=== PATIENT | female | born 1965 | race Caucasian/White ===

== ENCOUNTER 2020-07-02 08:48 | Outpatient (REF) | payer OTHER, SELFPAY ==
[2020-07-02 13:37] LABS: Urine Cytology See Pathology rpt
== END 2020-07-02 08:49 | disposition home or self-care (01) ==
LOC: HO.LNP 08:48
PROVIDERS: Visit Provider Urology
DX: C67.9 Malignant neoplasm of bladder, unspecified (principal)
CPT/HCPCS: 52000; 81002; 88112

== ENCOUNTER → 2020-12-29 08:25 | Outpatient (BNVA) | payer OTHER, SELFPAY | PROVIDERS: Visit Provider Urology | DX: C67.9 Malignant neoplasm of bladder, unspecified (principal) ==

== ENCOUNTER 2021-07-23 13:48 | Outpatient (REF) | payer OTHER, SELFPAY ==
[2021-07-23 16:19] LABS: Urine Cytology See Pathology rpt
== END 2021-07-23 13:49 | disposition home or self-care (01) ==
LOC: HO.LAB 13:48
PROVIDERS: PCP Nurse Practitioner Family; Visit Provider Urology
DX: C67.9 Malignant neoplasm of bladder, unspecified (principal)
CPT/HCPCS: 52000; 88112

== ENCOUNTER 2021-09-06 06:17 | Outpatient (REF) | payer OTHER, SELFPAY ==
[2021-09-06 11:31] LABS: MANUAL DIFF FLAG NO
[2021-09-06 11:39] LABS: Basophils Absolute Auto 0.1 X10*3/uL (0.0-0.2); Basophils Percent Auto 0.8 % (0-2); Eosinophils Absolute Auto 0.4 X10*3/uL (0.0-0.4); Eosinophils Percent Auto 4.3 % (0-4); Hematocrit 42.6 % (37.0-47.0); Imm Gran Abs Auto 0.02 X10*3/uL (0.00-0.03); Imm Gran Pct Auto 0.2 % (0.0-0.4); Lymphocytes Absolute Auto 3.4 X10*3/uL (1.2-4.9); Lymphocytes Percent Auto 40.7 % (20-40); Mean Corpuscular HGB Conc 32.9 g/dl (31.0-35.0); Mean Corpuscular Hemoglobin 29.7 pg (27.0-33.0); Mean Corpuscular Volume 90.4 fL (80.0-98.0); Mean Platelet Volume 10.2 fL (9.4-12.3); Monocytes Absolute Auto 0.8 X10*3/uL (0.1-1.2); Monocytes Percent Auto 9.5 % (2-11); Neutrophils Absolute Auto 3.7 x10*3/uL (2.0-8.3); Neutrophils Percent Auto 44.5 % (45-73); Platelet Count 363 X10*3/uL (160-400); Red Blood Count 4.71 X10*6/uL (4.20-5.50); Red Cell Distribution Width 13.4 % (11.0-16.0); White Blood Count 8.4 X10*3/uL (4.8-10.8)
[2021-09-06 12:12] LABS: Alanine Aminotransferase 30 U/L (0-31); Albumin Level 4.3 g/dL (3.5-5.0); Alkaline Phosphatase 85 U/L (39-117); Anion Gap 11 (12-20); Aspartate Amino Transferase 21 U/L (5-31); Bilirubin Total 0.2 mg/dL (0.0-1.0); Blood Urea Nitrogen 22 mg/dL (9-16); Calcium 9.7 mg/dL (8.4-10.2); Carbon Dioxide 28 mmol/L (22-29); Chloride 106 mmol/L (96-108); Cholesterol 308 mg/dL; Estimated Glomerular Filt Rate > 60; Glucose Fasting 121 mg/dL (60-99); HDL Cholesterol 51 mg/dL; LDL Cholesterol Calculated 219 mg/dl; Potassium 4.5 mmol/L (3.3-5.1); Sodium 140 mmol/L (135-145); TSH reflex Free T4 2.46 uIU/mL (0.32-4.0); Total Protein 7.1 g/dL (6.5-8.0); Triglycerides 190 mg/dL
[2021-09-06 12:20] LABS: Appearance Urine CLEAR; Color Urine YELLOW; Glucose Urine UA NEG (NEG); Leukocyte Esterase Urine NEG (NEG); Nitrite Urine NEG (NEG); Urine Blood NEG (NEG); Urine Ketones NEG (NEG); Urine Protein NEG (NEG-TRACE)
== END 2021-09-06 06:18 | disposition home or self-care (01) ==
LOC: HO.HMGCLDS 06:17
PROVIDERS: Visit Provider Nurse Practitioner Family
DX: I10 Essential (primary) hypertension (principal)
CPT/HCPCS: 36415; 80053; 80061; 81003; 84443; 85025

== ENCOUNTER → 2021-10-07 09:22 | Outpatient (BNVA) | payer OTHER, SELFPAY | PROVIDERS: PCP Nurse Practitioner Family; Referring Provider Nurse Practitioner Family; Visit Provider Physician Assistant | DX: D12.6 Benign neoplasm of colon, unspecified (principal); F17.200 Nicotine dependence, unspecified, uncomplicated; Z12.11 Encounter for screening for malignant neoplasm of colon; Z85.51 Personal history of malignant neoplasm of bladder; Z79.899 Other long term (current) drug therapy ==

== ENCOUNTER 2021-11-17 06:10 | Outpatient (REF) | payer OTHER, SELFPAY ==
[2021-11-17 12:00] LABS: Cholesterol 349 mg/dL; HDL Cholesterol 45 mg/dL; LDL Cholesterol Calculated 261 mg/dl; Triglycerides 216 mg/dL
== END 2021-11-17 06:11 | disposition home or self-care (01) ==
LOC: HO.HMGCLDS 06:10
PROVIDERS: Visit Provider Nurse Practitioner Family
DX: E78.5 Hyperlipidemia, unspecified (principal)
CPT/HCPCS: 36415; 80061

== ENCOUNTER → 2022-01-13 09:53 | Outpatient (BNVA) | payer OTHER, SELFPAY | PROVIDERS: PCP Nurse Practitioner Family; Visit Provider Urology | DX: C67.9 Malignant neoplasm of bladder, unspecified (principal) | CPT/HCPCS: 52000 ==

== ENCOUNTER 2022-02-01 14:06 | Outpatient (REF) | payer OTHER, SELFPAY ==
--- NOTE | ~2022-02-01 | MM_ITS ---
EXAMINATION: BONE DENSITOMETRY CLINICAL INDICATION: Asymptomatic menopausal state. COMPARISON: None (current study represents initial baseline exam). TECHNIQUE: Using a [employer] DXA System (software version: 13.1) manufactured by [employer], dual-energy x-ray absorptiometry was performed of the lumbar spine and left hip. The images are of good technical quality. Summary results are attached. FINDINGS: AP SPINE L1-L4: BMD 1.210 g/cm2, Z-score 1.0, T-score 0.2, normal. LEFT FEMUR, NECK: BMD 1.036 g/cm2, Z-score 1.0, T-score 0.0, normal. LEFT FEMUR, TOTAL: BMD 1.052 g/cm2, Z-score 1.0, T-score 0.3, normal. IDENTIFIED RISK FACTORS: Early menopause, secondary osteoporosis, hysterectomy. HISTORY OF FRACTURE: None listed. MEDICATIONS: None listed. MM/XR DEXA axial skeleton IMPRESSION: 1. DIAGNOSIS: Normal bone density based on the lowest T-score value of 0.0 in the femoral neck applying World Health Organization criteria. 2. 10-YEAR FRACTURE RISK PREDICTION, FRAX: According to the guidelines, FRAX calculation should only be performed on patients in the osteopenia bone density category. Therefore, FRAX was not performed on this patient. 3. Treatment Recommendations: NOF guidelines recommend consideration for treatment in postmenopausal women and men age 50 and older presenting with the following: -A hip or vertebral (clinical or morphometric) fracture. -T-score less than or equal to -2.5 at the femoral neck or spine after appropriate evaluation to exclude secondary causes. -Low bone mass at the hip or spine and a 10-year fracture probability by FRAX of greater than or equal to 3% for hip fracture or greater than or equal to 20% for major osteoporotic fracture based on the [place] adapted WHO algorithm. 4. Other Recommendations: All treatment decisions require clinical judgment and consideration of individual patient factors, including patient preferences, comorbidities, previous drug use, risk factors not captured in the FRAX model (e.g. frailty, falls, vitamin D deficiency, increased bone turnover, interval significant decline in bone density) and possible under or overestimation of fracture risk by FRAX. FUTURE SCAN RECOMMENDATION: People with diagnosed cases of osteoporosis or at high risk for fracture should have regular bone mineral density tests. For patients eligible for Medicare, routine testing is allowed once every 2 years. The testing frequency can be increased to one year for patients who have rapidly progressing disease, those who are receiving or discontinuing medical therapy to restore bone mass, or have additional risk factors.
--- NOTE | ~2022-02-01 | MM_ITS ---
EXAMINATION: MM SCREENING DIGITAL BREAST TOMOSYNTHESIS, BILATERAL CLINICAL INFORMATION: Screening. Asymptomatic. The lifetime risk of breast cancer based on the Tyrer-Cuzick Model is 7%. COMPARISON: Mammography: 03/26/2019, 01/12/2018, 08/11/2015 TECHNIQUE: Digital breast tomosynthesis is performed in both the craniocaudal and mediolateral oblique views along with computer-aided detection (CAD). Synthesized 2D images are generated from the tomosynthesis. FINDINGS: The breasts are heterogeneously dense, which may obscure small masses (ACR BI-RADS breast composition Category c). Parenchymal pattern is similar to prior studies. There is no developing density or architectural abnormality. There is some interval tightly grouped coarse calcifications mid upper outer right breast. No abnormal calcifications. The axilla and skin contours are unremarkable. No significant changes. MM/MM tomosynthesis screening BI IMPRESSION: No mammographic evidence of malignancy. ASSESSMENT: BI-RADS 2: Benign RECOMMENDATION: Routine annual mammography screening. This patient's information was entered into a reminder system with a target due date for their next mammogram.
== END 2022-02-01 14:07 | disposition home or self-care (01) ==
LOC: HO.MAMMO 14:06
PROVIDERS: Visit Provider Nurse Practitioner Family
DX: Z12.31 Encounter for screening mammogram for malignant neoplasm of breast (principal); Z13.820 Encounter for screening for osteoporosis; Z78.0 Asymptomatic menopausal state
CPT/HCPCS: 77063; 77067; 77080

== ENCOUNTER 2022-07-15 08:52 | Outpatient (REF) | payer OTHER, SELFPAY ==
[2022-07-15 16:57] LABS: Urine Cytology See Pathology rpt
== END 2022-07-15 08:53 | disposition home or self-care (01) ==
LOC: HO.LAB 08:52
PROVIDERS: PCP Nurse Practitioner Family; Visit Provider Urology
DX: C67.9 Malignant neoplasm of bladder, unspecified (principal)
CPT/HCPCS: 52000; 88112

== ENCOUNTER 2023-04-11 13:51 | Outpatient (AMB) | payer OTHER, SELFPAY ==
--- NOTE | 2023-04-11 13:54 | MHC.OFFVIS ---
Intake Intake Visit Reasons: Cysto(Bladder Ca) Intake Note: Patient presents today for a CYSTOSCOPY Procedure: Meds: None Allergies to Antibiotic: No Known Allergies Blood Thinner: None Urinalysis test clear for Cysto?- YES Disposable Uro-G Cystoscope Cannula: Lot: [id number] Exp: 11/13/2024 Landscape Photographer Required: No Accompanied by: Self / Same As Patient Allergies No Known Allergies Allergy (Verified 04/11/23 13:56) HPI HPI Comments History of Present Illness Details Federica is very pleasant female. She is a patient Dr. Morales. She is seen for following urologic conditions - bladder cancer Cysto question of small changes around prior resection areas Has been visible on previous cysto Continue surveillance Bladder Cancer: low-grade, recurrent, intermediate risk initial diagnosis 2017, last TURBT 02/18 Bladder cancer was initially diagnosed during evaluation for gross hematuria 06/18. Bladder intervention(s) performed 07/20 , TURBT, with Mitomycin C, Ta noninvasive papillary carcinoma, Low Grade 02/18 TURBT , Ta noninvasive papillary carcinoma, Low Grade. Recurrence Risk per EORTC - intermediate risk. Bladder cancer risk factors - smoking positive no workplace exposure Prior Cystoscopy 07/20 , Positive - small lesion 10/18 Negative 01/17 slight red posterior, metaplasia over left UO, 07/21 Small lesion on UO, 01/18 Small UO leson - will fulgerate in OR due to location 07/22 NAD, 12/20 posterior wall small area of redness, 06/21 small red spot, 12/21 stable - 12/21 cystoscopy negative, 07/24 NAD, 01/21 NAD Prior Cytology 07/20 , Negative for malignancy 10/18 , Negative for malignancy 04/19 , Negative for malignancy 07/21 , Negative for malignancy, 07/23 NAD Prior Imaging 06/18 , CT scan with contrast, No evidence for metastases 02/17 , Ultrasound mild left hydro stable. Previous intravesical therapy none. Planned treatment surveillance protocol q6 m for 5 years PFSH Medical History Bladder cancer HTN (hypertension) Gross hematuria Malignant neoplasm of anterior wall of urinary bladder Tubular adenoma of colon Overweight Surgical History Hx of colonoscopy History of surgery Family History Mother Diabetes HTN (hypertension) High cholesterol Father Diabetes HTN (hypertension) High cholesterol Sister HTN (hypertension) High cholesterol Sister HTN (hypertension) High cholesterol Sister HTN (hypertension) High cholesterol Brother HTN (hypertension) High cholesterol Brother HTN (hypertension) High cholesterol Brother HTN (hypertension) High cholesterol Social History Household Members Other:: , 17 y/o daughter Housing: House Alcohol intake: never Patient Tobacco Use Status: Former Tobacco user Quit Date: quit 20 years ago 1997 e-Cigarette/Vaping Use: Never Used Second Hand Smoke Exposure: No Substance Use Type: Marijuana Current occupational status: employed Current occupation: [employer] Current occupational exposures/hazards: No Cognitive needs: No Hearing needs: No Vision needs: No Review of Systems Const Denies chills and Denies fever(s) Card Reports no additional complaints and Denies syncope Resp Denies cough GI Denies abdominal pain and Denies heartburn Reports as per HPI and Denies change in libido Neuro Denies syncope Psych Denies change in libido Endo Denies change in libido Physical Exam Const General: cooperative, healthy appearing, comfortable and no acute distress Orientation/consciousness: patient oriented x3 HEENT Face and sinus: Yes normal facial exam Mouth: moist mucous membranes Neck Neck: Yes normal visual inspection, Yes full ROM and Yes trachea midline Chest Chest palpation & inspection: normal inspection of the chest Resp Effort & Inspection: normal respiratory effort, able to speak in complete sentences and no respiratory distress GI Inspection: Yes normal to inspection Back/Spine/Pelvis Cervical Spine: normal cervical lordosis Thoracic/Lumbar Spine: thoracic and lumbar spine normal to inspection Skin General skin exam: no rashes or lesions noted Neuro General: patient oriented x3, gait normal, tone normal and moves all extremities Extrem General: Yes normal to inspection and Yes capillary refill normal Office Procedures Cystoscopy Consent Discussed risk and benefit or proposed procedure with the patient. Information consent for procedure given to the patient. Discussed technical aspects, risks, benefits and alternatives in full. Addressed all of the patient's questions and concerns regarding the procedure. The patient demonstrated knowledge and understanding. They wish to proceed with this procedure. Preparation The patient was prepped in the usual manner. A fire suppression captain was present and in the room. Genitalia was prepped with betadine solution in a sterile manner. Lidocaine Jelly 2% was placed into the urethra and 16Fr flexible Olympus cystoscope was inserted into the meatus after adequate lubrication. Procedure Meatus normal position Urethra normal Bladder examination with retroflexion of cystoscope Bladder Orifices normal shape and position Trigone metaplasia Bladder Capacity medium Trabeculations - Cellule Formation - Diverticulum Formation - Mucosal Erythema - Bladder Tumor changes around prior resection [id number] DISPOSABLE SCOPE URO-G FLEXIBLE SCOPE Procedure code (CPT) selection complete Office Meds lidocaine HCl 2 % mucosal jelly in applicator Performing Provider: Alfie Bowden MD [place] [facility] Administered by: Del Ny LPN on 04/11/23 14:10 Dose Route Admin Location Dispensed Lot Number Expiration Date ND Inker Machine 10 mL intra-urethral 10 mL nitrofurantoin monohydrate/macrocrystals 100 mg capsule Performing Provider: Alfie Bowden MD Per[place] [facility] Administered by: Del Ny LPN on 04/11/23 14:10 Dose Route Admin Location Dispensed Lot Number Expiration Date ND Inker Machine 100 mg PO 1 cap naproxen 500 mg tablet Performing Provider: Alfie Bowden MD Performing [place] [facility] Administered by: Del Ny LPN on 04/11/23 14:10 Dose Route Admin Location Dispensed Lot Number Expiration Date ND Inker Machine 500 mg PO 1 tab Results AMB Urinalysis, Automated UA Leukoctes 0 Makenna/uL Last Edit by PASHA Bukcley on 04/11/23 14:09 UA Nitrite Negative Last Edit by PASHA Buckley on 04/11/23 14:09 UA Urobilinogen 0.2 mg/dL Last Edit by PASHA Buckley on 04/11/23 14:09 UA Protein 15 mg/dL Last Edit by PASHA Buckley on 04/11/23 14:09 UA pH 6.0 Last Edit by PASHA Buckley on 04/11/23 14:09 UA Blood 25 Sung/uL Last Edit by PASHA Buckley on 04/11/23 14:09 UA Specific [place] 1.030 Last Edit by PASHA Buckley on 04/11/23 14:09 UA Ketone Negative Last Edit by PASHA Buckley on 04/11/23 14:09 UA Bilirubin 0 mg/dL Last Edit by PASHA Buckley on 04/11/23 14:09 UA Glucose 0 mg/dL Last Edit by PASHA Buckley on 04/11/23 14:09 Results Reviewed Results Reviewed: Laboratory Last Values Urine pH (Auto) 6.0 04/11/23 14:06 Specific [place] (Auto) 1.030 04/11/23 14:06 Urine Protein (Auto) 15 mg/dL 04/11/23 14:06 Glucose (UA)(Auto) 0 mg/dL 04/11/23 14:06 Urine Ketones (Auto) Negative 04/11/23 14:06 Urine Blood (Auto) 25 Sung/uL 04/11/23 14:06 Urine Nitrite (Auto) Negative 04/11/23 14:06 Urine Bilirubin (Auto) 0 mg/dL 04/11/23 14:06 Urine Urobilinogen (Auto) 0.2 mg/dL 04/11/23 14:06 Leukocyte Esterase (Auto) 0 Makenna/uL 04/11/23 14:06 Assessment & Plan Assessment & Plan (1) Bladder cancer: Comment: Low-grade last TURBT 2019 Code(s): C67.9 - Malignant neoplasm of bladder, unspecified Qualifiers: Bladder location: unspecified site Qualified Code(s): C67.9 - Malignant neoplasm of bladder, unspecified Plan Six month follow-up cysto Orders: Orders AMB Urinalysis Automated Today Z13.9 - Encounter for screening, unspecified AMB Cystoscopy Today C67.9 - Malignant neoplasm of bladder, unspecified Patient Instructions: Imaging studies, laboratory and physical exam results were discussed and reviewed in detail. No major barriers to patient understanding were identified. An opportunity to ask questions regarding the treatment plan was provided. All questions were answered. The patient expressed understanding and agreement with the above treatment plan. The patient is aware they should contact our office by phone for worsening of their current condition or the appearance of new urologic symptoms. Compliance is encouraged with any medications and followup testing that is ordered. It is a privilege to participate in the urologic care of your patient. If you have any questions or concerns regarding treatment for the above conditions, or other urologic issues, please do not hesitate to contact me. The office telephone contact is [phone]. This note is constructed using voice recognition software. While every effort has been made to ensure accuracy stockfeed miller errors may have been included. Yours sincerely, Dr Alfie Bowden MD, [facility] - Urology Providers of Expert, Compassionate Care for the Genitourinary System Coding Level of Care Code Est Pt Level 3 (79315) Diagnoses Malignant neoplasm of urinary bladder, unspecified site C67.9 Bladder location: unspecified site CPT Codes Cystoscopy - CPT: 11872-[id number] ([id number])
== END 2023-04-11 14:41 | disposition home or self-care (01) ==
PROVIDERS: PCP Nurse Practitioner Family; Visit Provider Urology
DX: C67.9 Malignant neoplasm of bladder, unspecified (principal); Z13.9 Encounter for screening, unspecified
CPT/HCPCS: 52000

== ENCOUNTER → 2023-04-11 13:51 | Outpatient (BNVA) | payer OTHER, SELFPAY | PROVIDERS: Visit Provider Urology | DX: C67.9 Malignant neoplasm of bladder, unspecified (principal) | CPT/HCPCS: 52000; 81003 ==

== ENCOUNTER 2023-11-01 14:58 | Outpatient (REF) | payer OTHER, SELFPAY ==
[2023-11-01 16:23] LABS: Urine Cytology See Pathology rpt
== END 2023-11-01 14:59 | disposition home or self-care (01) ==
LOC: HO.LAB 14:58
PROVIDERS: PCP Nurse Practitioner Family; Visit Provider Urology
DX: C67.9 Malignant neoplasm of bladder, unspecified (principal); Z87.891 Personal history of nicotine dependence
CPT/HCPCS: 52000; 81003; 88112

== ENCOUNTER 2023-11-01 14:58 | Outpatient (AMB) | payer OTHER, SELFPAY ==
--- NOTE | 2023-11-01 15:11 | A.OFFVIS_ITS ---
Intake Visit Reasons: 6m/cysto Intake Note: Patient is Present for Cystoscopy Urology Med: None Antibiotic Allergy: None Blood Thinner:Non URO- G Disposable Cystoscope lot: [id number] exp:05/11/2026 Allergies No Known Allergies Allergy (Verified 11/01/23 15:14) HPI Comments Details: Federica is very pleasant female. She is a patient Dr. Morales. She is seen for following urologic conditions - bladder cancer Surveillance cystoscopy No changes seen 12 month follow-up Bladder Cancer: low-grade, recurrent, intermediate risk initial diagnosis 2017, last TURBT 02/18 Bladder cancer was initially diagnosed during evaluation for gross hematuria 06/18. Bladder intervention(s) performed 07/20 , TURBT, with Mitomycin C, Ta noninvasive papillary carcinoma, Low Grade 02/18 TURBT , Ta noninvasive papillary carcinoma, Low Grade. Recurrence Risk per EORTC - intermediate risk. Bladder cancer risk factors - smoking positive no workplace exposure Prior Cystoscopy 07/20 , Positive - small lesion 10/18 Negative 01/17 slight red posterior, metaplasia over left UO, 07/21 Small lesion on UO, 01/18 Small UO leson - will fulgerate in OR due to location 07/22 NAD, 12/20 posterior wall small area of redness, 06/21 small red spot, 12/21 stable - 12/21 cystoscopy negative, 07/24 NAD, 01/21 NAD Prior Cytology 07/20 , Negative for malignancy 10/18 , Negative for malignancy 04/19 , Negative for malignancy 07/21 , Negative for malignancy, 07/23 NAD Prior Imaging 06/18 , CT scan with contrast, No evidence for metastases 02/17 , Ultrasound mild left hydro stable. Previous intravesical therapy none. Planned treatment surveillance protocol q6 m for 5 years [facility] Medical History Bladder cancer HTN (hypertension) Gross hematuria Malignant neoplasm of anterior wall of urinary bladder Tubular adenoma of colon Overweight Surgical History Hx of colonoscopy History of surgery Family History Mother Diabetes HTN (hypertension) High cholesterol Father Diabetes HTN (hypertension) High cholesterol Sister HTN (hypertension) High cholesterol Sister HTN (hypertension) High cholesterol Sister HTN (hypertension) High cholesterol Brother HTN (hypertension) High cholesterol Brother HTN (hypertension) High cholesterol Brother HTN (hypertension) High cholesterol Social History Household Members Other:: , 17 y/o daughter Housing: House Alcohol intake: never Patient Tobacco Use Status: Former Tobacco user Quit Date: quit 20 years ago 1997 e-Cigarette/Vaping Use: Never Used Second Hand Smoke Exposure: No Substance Use Type: Marijuana Current occupational status: employed Current occupation: [employer] Current occupational exposures/hazards: No Cognitive needs: No Hearing needs: No Vision needs: No Review of Systems Const Denies chills and Denies fever(s) Card Reports no additional complaints and Denies syncope Resp Denies cough GI Denies abdominal pain and Denies heartburn Reports as per HPI and Denies change in libido Neuro Denies syncope Psych Denies change in libido Endo Denies change in libido Physical Exam Const General: cooperative, healthy appearing, comfortable and no acute distress Orientation/consciousness: patient oriented x3 HEENT Face and sinus: Yes normal facial exam Mouth: moist mucous membranes Neck Neck: Yes normal visual inspection, Yes full ROM and Yes trachea midline Chest Chest palpation & inspection: normal inspection of the chest Resp Effort & Inspection: normal respiratory effort, able to speak in complete sentences and no respiratory distress GI Inspection: Yes normal to inspection Back/Spine/Pelvis Cervical Spine: normal cervical lordosis Thoracic/Lumbar Spine: thoracic and lumbar spine normal to inspection Skin General skin exam: no rashes or lesions noted Neuro General: patient oriented x3, gait normal, tone normal and moves all extremities Extrem General: Yes normal to inspection and Yes capillary refill normal Office Procedures Cystoscopy Consent Discussed risk and benefit or proposed procedure with the patient. Information consent for procedure given to the patient. Discussed technical aspects, risks, benefits and alternatives in full. Addressed all of the patient's questions and concerns regarding the procedure. The patient demonstrated knowledge and understanding. They wish to proceed with this procedure. Preparation The patient was prepped in the usual manner. A dinner cook was present and in the room. Genitalia was prepped with betadine solution in a sterile manner. Lido vicente Jelly 2% was placed into the urethra and 16Fr flexible Olympus cystoscope was inserted into the meatus after adequate lubrication. Procedure Meatus normal position Urethra normal Bladder examination with retroflexion of cystoscope Bladder Orifices normal shape and position Trigone normal Bladder Capacity normal Trabeculations - Cellule Formation - Diverticulum Formation - Mucosal Erythema - Bladder Tumor - [id number] DISPOSABLE SCOPE URO-G FLEXIBLE SCOPE Procedure code (CPT) selection complete Office Meds lidocaine HCl 2 % mucosal jelly in applicator Performing Provider: Alfie Bowden MD Performing Location: [facility] [place] [facility] Administered by: Daphne Marino RN on 11/01/23 15:28 Dose Route Admin Location Dispensed Lot Number Expiration Date NDC Cook Vegetable 10 mL intra-urethral 10 mL nitrofurantoin monohydrate/macrocrystals 100 mg capsule Performing Provider: Alfie Bowden MD Performing Location: [facility] [place] [facility] Administered by: Daphne Marino RN on 11/01/23 15:28 Dose Route Admin Location Dispensed Lot Number Expiration Date NDC Cook Vegetable 100 mg PO 1 cap naproxen 500 mg tablet Performing Provider: Alfie Bowden MD Performing Location: [facility] [place] [facility] Administered by: Daphne Marino RN on 11/01/23 15:28 Dose Route Admin Location Dispensed Lot Number Expiration Date NDC Cook Vegetable 500 mg PO 1 tab Results AMB Urinalysis, Automated UA Leukoctes 0 Makenna/uL Last Edit by PASHA Adair on 11/01/23 15:27 UA Nitrite Negative Last Edit by PASHA Adair on 11/01/23 15:27 UA Urobilinogen 0.2 mg/dL Last Edit by PASHA Adair on 11/01/23 15:2 7 UA Protein 15 mg/dL Last Edit by PASHA Adair on 11/01/23 15:27 UA pH 6.0 Last Edit by PASHA Adair on 11/01/23 15:27 UA Blood 0 Sung/uL Last Edit by PASHA Adair on 11/01/23 15:27 UA Specific [place] 1.015 Last Edit by PASHA Adair on 11/01/23 15: 27 UA Ketone Negative Last Edit by PASHA Adair on 11/01/23 15:27 UA Bilirubin 0 mg/dL Last Edit by PASHA Adair on 11/01/23 15:27 UA Glucose 0 mg/dL Last Edit by PASHA Adair on 11/01/23 15:27 Results Reviewed Results Reviewed: Laboratory Last Values Urine pH (Auto) 6.0 11/01/23 15:15 Specific [place] (Auto) 1.015 11/01/23 15:15 Urine Protein (Auto) 15 mg/dL 11/01/23 15:15 Glucose (UA)(Auto) 0 mg/dL 11/01/23 15:15 Urine Ketones (Auto) Negative 11/01/23 15:15 Urine Blood (Auto) 0 Sung/uL 11/01/23 15:15 Urine Nitrite (Auto) Negative 11/01/23 15:15 Urine Bilirubin (Auto) 0 mg/dL 11/01/23 15:15 Urine Urobilinogen (Auto) 0.2 mg/dL 11/01/23 15:15 Leukocyte Esterase (Auto) 0 Makenna/uL 11/01/23 15:15 Assessment & Plan Assessment & Plan (1) Bladder cancer: Comment: Low-grade last TURBT 2019 Code(s): C67.9 - Malignant neoplasm of bladder, unspecified Category: Medical Qualifiers: Bladder location: unspecified site Qualified Code(s): C67.9 - Malignant neoplasm of bladder, unspecified Plan Twelve month follow-up cystoscopy Orders: Orders AMB Cystoscopy Today C67.9 - Malignant neoplasm of bladder, unspecified AMB Urinalysis Automated Today Z13.9 - Encounter for screening, unspecified Urine Cytology Today C67.9 - Malignant neoplasm of bladder, unspecified Patient Instructions: Imaging studies, laboratory and physical exam results were discussed and reviewed in detail. No major barriers to patient understanding were identified. An opportunity to ask questions regarding the treatment plan was provided. All questions were answered. The patient expressed understanding and agreement with the above treatment plan. The patient is aware they should contact our office by phone for worsening of their current condition or the appearance of new urologic symptoms. Compliance is encouraged with any medications and followup testing that is ordered. It is a privilege to participate in the urologic care of your patient. If you have any questions or concerns regarding treatment for the above conditions, or other urologic issues, please do not hesitate to contact me. The office telephone contact is [phone]. This note is constructed using voice recognition software. While every effort has been made to ensure accuracy pododermatologist errors may have been included. Yours sincerely, Dr Alfie Bowden MD, [facility] - Urology Providers of Expert, Compassionate Care for the Genitourinary System Coding Level of Care Code Est Pt Level 3 (33465) Diagnoses Malignant neoplasm of urinary bladder, unspecified site C67.9 Bladder location: unspecified site CPT Codes Cystoscopy - CPT: [id number] ([id number])
== END 2023-11-01 15:49 | disposition home or self-care (01) ==
PROVIDERS: PCP Nurse Practitioner Family; Visit Provider Urology
DX: C67.9 Malignant neoplasm of bladder, unspecified (principal); Z13.9 Encounter for screening, unspecified
CPT/HCPCS: 52000; 99213

== ENCOUNTER 2024-10-30 12:48 | Outpatient (AMB) | payer OTHER, SELFPAY ==
--- NOTE | 2024-10-30 13:10 | A.OFFVIS_ITS ---
Intake Visit Reasons: cysto Intake Note: Patient is present for Cystoscopy Urology Medication:NONE Antibiotic Allergy:NONE Blood Thinner:NONE Lot:[id number] Exp:11/08/26 Clinical Abstractor Required: No Allergies No Known Allergies Allergy (Verified 10/30/24 13:12) HPI Comments Details: Federica is very pleasant female. She is a patient Dr. Morales. She is seen for following urologic conditions - bladder cancer Surveillance cystoscopy Recurrent lesion seen at dome of bladder proximally 1-1/2-2 cm flat appearance consistent with recurrent low-grade disease Cytology - 11/23 NAD Bladder Cancer: low-grade, recurrent, intermediate risk initial diagnosis 2017, last TURBT 02/18 Bladder cancer was initially diagnosed during evaluation for gross h ematuria 06/18. Bladder intervention(s) performed 07/20 , TURBT, with Mitomycin C, Ta noninvasive papillary carcinoma, Low Grade 02/18 TURBT , Ta noninvasive papillary carcinoma, Low Grade. Recurrence Risk per EORTC - intermediate risk. Bladder cancer risk factors - smoking positive no workplace exposure Prior Cystoscopy 07/20 , Positive - small lesion 10/18 Negative 01/17 slight red posterior, metaplasia over left UO, 07/21 Small lesion on UO, 01/18 Small UO leson - will fulgerate in OR due to location 07/22 NAD, 12/20 posterior wall small area of redness, 06/21 small red spot, 12/21 stable - 12/21 cystoscopy negative, 07/24 NAD, 01/21 NAD Prior Cytology 07/20 , Negative for malignancy 10/18 , Negative for malignancy 04/19 , Negative for malignancy 07/21 , Negative for malignancy, 07/23 NAD Prior Imaging 06/18 , CT scan with contrast, No evidence for metastases 02/17 , Ultrasound mild left hydro stable. Previous intravesical therapy none. Planned treatment surveillance protocol q6 m for 5 years PFSH Medical History Bladder cancer HTN (hypertension) Gross hematuria Malignant neoplasm of anterior wall of urinary bladder Tubular adenoma of colon Overweight Surgical History Hx of colonoscopy History of surgery Family History Mother Diabetes HTN (hypertension) High cholesterol Father Diabetes HTN (hypertension) High cholesterol Sister HTN (hypertension) High cholesterol Sister HTN (hypertension) High cholesterol Sister HTN (hypertension) High cholesterol Brother HTN (hypertension) High cholesterol Brother HTN (hypertension) High cholesterol Brother HTN (hypertension) High cholesterol Social History Household Members Other:: , 17 y/o daughter Housing: House Alcohol intake: never Patient Tobacco Use Status: Former Tobacco user e-Cigarette/Vaping Use: Never Used Second Hand Smoke Exposure: No Substance Use Type: Marijuana Current occupational status: employed Current occupation: [employer] Current occupational exposures/hazards: No Cognitive needs: No Hearing needs: No Vision needs: No Review of Systems Const Denies chills and Denies fever(s) Card Reports no additional complaints and Denies syncope Resp Denies cough GI Denies abdominal pain and Denies heartburn Reports as per HPI and Denies change in libido Neuro Denies syncope Psych Denies change in libido Endo Denies change in libido Physical Exam Const General: cooperative, healthy appearing, comfortable and no acute distress Orientation/consciousness: patient oriented x3 HEENT Face and sinus: Yes normal facial exam Mouth: moist mucous membranes Neck Neck: Yes normal visual inspection, Yes full ROM and Yes trachea midline Chest Chest palpation & inspection: normal inspection of the chest Resp Effort & Inspection: normal respiratory effort, able to speak in complete sentences and no respiratory distress GI Inspection: Yes normal to inspection Back/Spine/Pelvis Cervical Spine: normal cervical lordosis Thoracic/Lumbar Spine: thoracic and lumbar spine normal to inspection Skin General skin exam: no rashes or lesions noted Neuro General: patient oriented x3, gait normal, tone normal and moves all extremities Extrem General: Yes normal to inspection and Yes capillary refill normal Office Procedures Cystoscopy Consent Discussed risk and benefit or proposed procedure with the patient. Information consent for procedure given to the patient. Discussed technical aspects, risks, benefits and alternatives in full. Addressed all of the patient's questions and concerns regarding the procedure. The patient demonstrated knowledge and understanding. They wish to proceed with this procedure. Preparation The patient was prepped in the usual manner. A cartridge assembler was present and in the room. Genitalia was prepped with betadine solution in a sterile manner. Lidocaine Jelly 2% was placed into the urethra and 16Fr flexible Olympus cystoscope was inserted into the meatus after adequate lubrication. Procedure Meatus anterior Urethra normal Bladder examination with retroflexion of cystoscope Bladder Orifices normal shape and position Trigone normal Bladder Capacity mediium Trabeculations grade 0 Cellule Formation no Diverticulum Formation none Mucosal Erythema normal Bladder Tumor recurrent 1.5 cm lesion dome of bladder low-grade papillary 23721-[id number] DISPOSABLE SCOPE URO-G FLEXIBLE SCOPE Procedure code (CPT) selection complete Office Meds lidocaine HCl 2 % mucosal jelly in applicator Performing Provider: Alfie Bowden MD Performing Location: [facility] [place] [facility] Administered by: Barb Haley RN on 10/30/24 13:27 Dose Route Admin Location Dispensed Lot Number Expiration Date [employer] 10 mL intra-urethral 10 mL nitrofurantoin monohydrate/macrocrystals 100 mg capsule Performing Provider: Alfie Bowden MD Performing Location: [facility] [place] [facility] Administered by: Barb Haley RN on 10/30/24 13:27 Dose Route Admin Location Dispensed Lot Number Expiration Date NDC Employment Educational Coord 100 mg PO 1 cap Assessment & Plan Assessment & Plan (1) Bladder cancer: Comment: Low-grade last TURBT 2018 Code(s): C67.9 - Malignant neoplasm of bladder, unspecified Category: Medical Qualifiers: Bladder location: unspecified site Qualified Code(s): C67.9 - Malignant neoplasm of bladder, unspecified Plan Recurrent bladder tumor Risks, benefits and alternatives to therapy were discussed. These include but are not limited to infection, bleeding, damage to local organs and tissues, need for further interventions. Anesthetic risks regarding cardiac arrhythmia, blood clots, and potential mortality were discussed. The patient understands the typical recovery time and the outpatient nature of the procedure. After consideration of these risks the patient gives full informed consent and they wish to move ahead with the procedure. TURBT, fulguration, mitomycin-C with cytarabine irrigation Orders: Orders AMB Cystoscopy Today C67.9 - Malignant neoplasm of bladder, unspecified AMB Urinalysis Automated Today Z13.9 - Encounter for screening, unspecified Urine Cytology Today C67.9 - Malignant neoplasm of bladder, unspecified Patient Instructions: This note is constructed using voice recognition software. While every effort has been made to ensure accuracy data analyst errors may have been included. Imaging studies, laboratory and physical exam results were discussed and reviewed in detail. No major barriers to patient understanding were identified. An opportunity to ask questions regarding the treatment plan was provided. All questions were answered. The patient expressed understanding and agreement with the above treatment plan. The patient is aware they should contact our office by phone for worsening of their current condition or the appearance of new urologic symptoms. Compliance is encouraged with any medications and followup testing that is ordered. It is a privilege to participate in the urologic care of your patient. If you have any questions or concerns regarding treatment for the above conditions, or other urologic issues, please do not hesitate to contact me. The office telephone contact is [phone]. Sincerely, Dr Alfie Bowden MD, [facility] - Urology Compassionate Specialist Care for the Genitourinary System Coding Level of Care Code Est Pt Level 4 (23339) Complex EM visit Add On G2211 Diagnoses Malignant neoplasm of urinary bladder, unspecified site C67.9 Bladder location: unspecified site CPT Codes Cystoscopy - CPT: 76087-[id number] ([id number])
== END 2024-10-30 13:48 | disposition home or self-care (01) ==
LOC: HO.HUSH 12:48
PROVIDERS: PCP Nurse Practitioner Family; Visit Provider Urology
DX: C67.8 Malignant neoplasm of overlapping sites of bladder (principal)
CPT/HCPCS: 52000; 99214

== ENCOUNTER 2024-10-30 12:48 | Outpatient (REF) | payer OTHER, SELFPAY ==
[2024-10-30 17:18] LABS: Urine Cytology See Pathology rpt
== END 2024-10-30 12:49 | disposition home or self-care (01) ==
LOC: HO.LAB 12:48
PROVIDERS: PCP Nurse Practitioner Family; Visit Provider Urology
DX: C67.1 Malignant neoplasm of dome of bladder (principal)
CPT/HCPCS: 52000; 81003; 88112

== ENCOUNTER 2025-02-10 06:49 | Day surgery (SDC) | payer OTHER, SELFPAY ==
[2024-12-05 13:05] VITALS: BMI 26.2
--- NOTE | 2024-12-06 10:31 | HO.ANESPROP2 ---
HPI - Anesthesia Eval Consult details Narrative: 59yo F for TUR Bladder Tumor with bipolar,Mitomycin,Cytarabine PMFSH Active Problems Active Problems: All Active Problems Shortness of breath (Acute) Flu-like symptoms (Acute) Dermatitis (Acute) Postmenopausal (Acute) Dyslipidemia (Acute) COVID (Acute) Screening for colon cancer (Acute) Bladder cancer (Acute) Tubular adenoma of colon (Acute) HTN (hypertension) (Acute) Past Medical History Medical History (Updated 12/05/24 @ 13:05 by Barb Sandoval RN) Bladder cancer HTN (hypertension) Gross hematuria Malignant neoplasm of anterior wall of urinary bladder Tubular adenoma of colon Overweight Family History Family History Mother Diabetes HTN (hypertension) High cholesterol Father Diabetes HTN (hypertension) High cholesterol Sister HTN (hypertension) High cholesterol Sister HTN (hypertension) High cholesterol Sister HTN (hypertension) High cholesterol Brother HTN (hypertension) High cholesterol Brother HTN (hypertension) High cholesterol Brother HTN (hypertension) High cholesterol Surgical History Surgical History (Updated 12/05/24 @ 12:59 by Barb Sandoval RN) Hx of hysterectomy, total Hx of colonoscopy Social History Social History Household Members Other:: , 17 y/o daughter Housing: House Are you a primary critical care paramedic to a significant other at home: No Do you presently have visiting nurse or other home services: No Alcohol intake: never Patient Tobacco Use Status: Former Tobacco user e-Cigarette/Vaping Use: Never Used Second Hand Smoke Exposure: No Use of substances other than those prescribed or required for medical reasons: Yes Substance Use Type: Marijuana Substance Use Type Other:: smokes marijuana q3-4 days Have you been hit, kicked, punched, or otherwise hurt by someone within the past year? If so, by whom?: No Spiritual Healthcare Practices: no Taoist Healthcare Practices: no Cultural Healthcare Practices: no Are you DNR?: No Advance Directives Information Provided: Yes (as above noted) Advance Directives on File: No FDLMP: n/a Poor oral hygiene: No Current occupational status: employed Current occupation: [employer] Current occupational exposures/hazards: No Cognitive needs: No Hearing needs: No Vision needs: No Meds Allergies Allergy/AdvReac Type Severity Reaction Status Date / Time No Known Allergies Allergy Verified 10/30/24 13:12 Home Medications ?Medication ?Instructions ?Recorded ?Confirmed ?Last Taken ?Type multivitamin 1 tab PO DAILY 12/05/24 12/05/24 Unknown History Exam Height,Weight and Vital Signs: Height 5 ft 4.75 in Weight 70.76 kg Assessment and Plan Assessment Anesthesia Assessment: Chart Reviewed
--- NOTE | 2025-02-07 12:05 | HO.ANESPROP2 ---
Documented by User: Desiree Delgadillo NP 02/07/25 12:06 HPI - Anesthesia Eval Consult details Narrative: 59yo F for TUR Bladder Tumor with bipolar,Mitomycin,Cytarabine PMFSH Active Problems Active Problems: All Active Problems Shortness of breath (Acute) Flu-like symptoms (Acute) Dermatitis (Acute) Postmenopausal (Acute) Dyslipidemia (Acute) COVID (Acute) Screening for colon cancer (Acute) Bladder cancer (Acute) Tubular adenoma of colon (Acute) HTN (hypertension) (Acute) Past Medical History Medical History Bladder cancer HTN (hypertension) Gross hematuria Malignant neoplasm of anterior wall of urinary bladder Tubular adenoma of colon Overweight Family History Family History Mother Diabetes HTN (hypertension) High cholesterol Father Diabetes HTN (hypertension) High cholesterol Sister HTN (hypertension) High cholesterol Sister HTN (hypertension) High cholesterol Sister HTN (hypertension) High cholesterol Brother HTN (hypertension) High cholesterol Brother HTN (hypertension) High cholesterol Brother HTN (hypertension) High cholesterol Surgical History Surgical History (Updated 02/10/25 @ 07:16 by Ivelisse Ledesma RN) History of cystoscopy Hx of hysterectomy, total Hx of colonoscopy Social History Social History Household Members Other:: , 17 y/o daughter Housing: House Are you a primary occasional caregiver to a significant other at home: No Do you presently have visiting nurse or other home services: No Alcohol intake: never Patient Tobacco Use Status: Former Tobacco user e-Cigarette/Vaping Use: Never Used Second Hand Smoke Exposure: No Use of substances other than those prescribed or required for medical reasons: Yes Substance Use Type: Marijuana Substance Use Type Other:: smokes marijuana q3-4 days Have you been hit, kicked, punched, or otherwise hurt by someone within the past year? If so, by whom?: No Spiritual Healthcare Practices: no Judaism Healthcare Practices: no Cultural Healthcare Practices: no Are you DNR?: No Advance Directives Information Provided: Yes (as above noted) Advance Directives on File: No FDLMP: n/a Poor oral hygiene: No Current occupational status: employed Current occupation: [employer] Current occupational exposures/hazards: No Cognitive needs: No Hearing needs: No Vision needs: No Meds Allergies Allergy/AdvReac Type Severity Reaction Status Date / Time No Known Allergies Allergy Verified 02/10/25 06:56 Home Medications ?Medication ?Instructions ?Recorded ?Confirmed ?Last Taken ?Type multivitamin 1 tab PO DAILY 12/05/24 02/10/25 Unknown History Exam Height,Weight and Vital Signs: Height 5 ft 4.75 in Weight 70.76 kg Assessment and Plan Assessment Anesthesia Assessment: Chart Reviewed Documented by User: Deandre Herrera MD 02/10/25 09:24 [facility] Past Medical History Medical History Bladder cancer HTN (hypertension) Gross hematuria Malignant neoplasm of anterior wall of urinary bladder Tubular adenoma of colon Overweight Family History Family History Mother Diabetes HTN (hypertension) High cholesterol Father Diabetes HTN (hypertension) High cholesterol Sister HTN (hypertension) High cholesterol Sister HTN (hypertension) High cholesterol Sister HTN (hypertension) High cholesterol Brother HTN (hypertension) High cholesterol Brother HTN (hypertension) High cholesterol Brother HTN (hypertension) High cholesterol Family history of problems with anesthesia: No Surgical History Surgical History (Updated 02/10/25 @ 07:16 by Ivelisse Ledesma RN) History of cystoscopy Hx of hysterectomy, total Hx of colonoscopy History of Problems with Anesthesia: No Social History Social History Household Members Other:: , 17 y/o daughter Housing: House Are you a primary occasional caregiver to a significant other at home: No Do you presently have visiting nurse or other home services: No Alcohol intake: never Patient Tobacco Use Status: Former Tobacco user e-Cigarette/Vaping Use: Never Used Second Hand Smoke Exposure: No Use of substances other than those prescribed or required for medical reasons: Yes Substance Use Type: Marijuana Substance Use Type Other:: smokes marijuana q3-4 days Have you been hit, kicked, punched, or otherwise hurt by someone within the past year? If so, by whom?: No Spiritual Healthcare Practices: no Judaism Healthcare Practices: no Cultural Healthcare Practices: no Are you DNR?: No Advance Directives Information Provided: Yes (as above noted) Advance Directives on File: No FDLMP: n/a Poor oral hygiene: No Current occupational status: employed Current occupation: [employer] Current occupational exposures/hazards: No Cognitive needs: No Hearing needs: No Vision needs: No Meds Allergies Allergy/AdvReac Type Severity Reaction Status Date / Time No Known Allergies Allergy Verified 02/10/25 06:56 Home Medications ?Medication ?Instructions ?Recorded ?Confirmed ?Last Taken ?Type multivitamin 1 tab PO DAILY 12/05/24 02/10/25 Unknown History Exam Airway Mallampati Class: I TM Dist: <=3cm Neck ROM: Full Loose/Missing/Broken Teeth: No Heart: ok Lungs: ok Assessment and Plan Assessment Anesthesia Assessment: Anesthesia Plan Discussed Final Anesthetic Review Family History of Problems with Anesthesia: No History of Problems with Anesthesia: No NPO: Yes ASA Class: III Final Preanesthetic Review: No Changes in Pt Med Stat, Meds/Allgs Chart Reviewed, Consent Obtained/Reviewed and Anes Risks/Benef Reviewed Patient Risk: Intermediate Procedure Risk: Low Anesthetic Plan Anesthetic Plan: GA and Agree w/ Assess. and Plan Disposition: Standard PACU
[2025-02-10] VITALS (10 sets, daily range): BP systolic 113–193; BP diastolic 77–94; PULSE 74–98; RESP 11–18; TEMP 36.3–36.6; O2SAT 96–99; BMI 26.6
[2025-02-10] MEDS: Lactated Ringers 1,000 ML 100 ML IVCONT (07:15)
--- NOTE | 2025-02-10 09:03 | MHC.SHP ---
Pre-Procedural Eval Section A - 24 Hr Update-Section A only Date of Service: 02/10/25 The patient is an INPATIENT: No Changes since office visit: No Cold of Flu in the past 2 weeks, No New Medical Problems, No Changes in Medication and No Patient answered all questions The patient has been examined within 24 hours of the surgical procedure. The History & Physical has been completed within 30 days and I have reviewed it.: Yes Section B - Complete if H&P > 30 days Chief Complaint: Malignant neoplasm of bladder, unspecified Details of Present Illness: recurrent Relevant Social History: None Present Medications: see Short Stay Collaborative assessment Medical History: No relevant PMH History of Previous Operations: Relevant previous surgery/procedure and date(s) Allergies: Allergies Allergy/AdvReac Type Severity Reaction Status Date / Time No Known Allergies Allergy Verified 02/10/25 06:56 Review of Systems Sugical H&P ROS: Negative: Constitution, Cardiovascular, Respiratory, Neurological, Psychiatric, Hem-Onc, Allergic/Immunologic, Gastrointestinal, Genitourinary, Musculoskeletal, Integumentary, Endocrine and Eyes/Ears/Nose/Throat Exam Surgical H&P Exam: Normal: HEENT, Normal: Heart, Normal: Lungs, Normal: Extremities, Normal: Abdomen, Normal: Skin and Normal: Neurological Plan Diagnosis/Plan: Unchanged (TURBT with immunotherapy) I have reviewed the history and physical and performed a pertinent physical examination on my patient. No changes have occurred unless specified. Time Spent With Patient Time: Total time managing care of this patient today ____ minutes.
--- NOTE | 2025-02-10 11:20 | P.OP_ITS ---
Operative Note Operative Note Date of Service: 02/10/25 Narrative: PreOperative Diagnosis: bladder cancer Post Operative Diagnosis: bladder cancer - Tumor size 2 cm, location Bladder Dome Procedure: TURBT and MMC/Cytarabine instillation Surgeon: Dr Alfie Bowden Anesthesia: general Indications for procedure: Recurrent bladder cancer Initial lesion 2018 Procedure: After informed consent was verified the patient was brought to the operating room and placed in a supine position. Anesthesia was administered per protocol. The patient was placed in a modified dorsal lithotomy position and prepped and draped in a sterile fashion. Safety pause time-out was performed. Antibiotics were confirmed. A 26 [place] continuous flow resectoscope was inserted per urethra. The visual obturator was used in order to minimize potential for urethral damage. Bladder examined in its entirety Lesion seen on dome. Resection performed. Fulguration performed 1 cm round lesion. Narrow band imaging used to review bladder. Two other small lesions seen nearby. These were fulgurated. At the completion of the procedure the bladder was irrigated. The cystoscope was removed. A [address] Sen catheter was inserted into the bladder. 10 cc was placed in the balloon. Mitomycin-C with cytarabine in 40 cc of normal saline was instilled into the bladder. The flow from the catheter was left clamped. The inflow to the catheter was attached to a 3 L normal saline bag. The patient tolerated the procedure well. They were extubated in the operating room and transferred in stable condition to the recovery area. The immunotherapy agent will remain in the bladder for 1 hour. At the completion of 1 hour the clamp will be removed. The immunotherapy agent will be allowed to egress to the urine collection bag. The 3 L bag of normal saline will be run at maximum rate through the bladder in order to dilute any residual immunotherapy agent. The Sen catheter will then be removed. Pathology: bladder cancer Drains: Sen as above
== END 2025-02-10 12:08 | disposition home or self-care (01) ==
PROVIDERS: PCP Nurse Practitioner Family; Visit Provider Urology
PROC: 0TBB8ZZ Excision of Bladder, Via Natural or Artificial Opening Endoscopic (ICD-10-PCS; CPT 52234; principal; 2025-02-10 08:40)
DX: C67.1 Malignant neoplasm of dome of bladder (principal); I10 Essential (primary) hypertension; R31.0 Gross hematuria; Z87.891 Personal history of nicotine dependence; Z98.890 Other specified postprocedural states
CPT/HCPCS: 52234; 51720; 88307; J1956; J2003; J2405; J2704; J3010; J9100; J9280

== ENCOUNTER → 2025-02-10 06:49 | Outpatient (BNV) | payer OTHER, SELFPAY | PROVIDERS: PCP Nurse Practitioner Family; Visit Provider Urology | DX: C67.1 Malignant neoplasm of dome of bladder (principal) | CPT/HCPCS: 52234 ==

== ENCOUNTER 2025-02-27 13:18 | Outpatient (REF) | payer OTHER, SELFPAY | END 2025-02-27 13:19 | disposition home or self-care (01) | LOC: HO.LAB 13:18 | PROVIDERS: PCP Nurse Practitioner Family; Visit Provider Urology | DX: C67.9 Malignant neoplasm of bladder, unspecified (principal); Z90.6 Acquired absence of other parts of urinary tract | CPT/HCPCS: 81003; 88112 ==

== ENCOUNTER 2025-02-27 13:18 | Outpatient (AMB) | payer OTHER, SELFPAY ==
--- NOTE | 2025-02-27 13:21 | A.OFFVIS_ITS ---
Intake Visit Reasons: TURBT follow up Intake Note: Patient is present for Post-Op TURBT Urology Medication:NONE Antibiotic Allergy:NONE Blood Thinner:NONE Certified Medical Transcriptionist Required: No Accompanied by: Self / Same As Patient Allergies No Known Allergies Allergy (Verified 02/27/25 13:22) HPI Comments Details: Federica is very pleasant female. She is a patient Dr. Morales. She is seen for following urologic conditions - bladder cancer Had single dose mitomycin-C with cytarabine at time of procedure Would plan on 4 month follow-up check cysto office Cytology - 11/23 NAD Bladder Cancer: low-grade, recurrent, intermediate risk initial diagnosis 2017, last TURBT 02/18 Bladder cancer was initially diagnosed during evaluation for gross hematuria 06/18. Bladder intervention(s) performed 07/20 , TURBT, with Mitomycin C, Ta noninvasive papillary carcinoma, Low Grade 02/18 TURBT , Ta noninvasive papillary carcinoma, Low Grade. - 02/24 TURBT predominantly inflammatory response Recurrence Risk per EORTC - intermediate risk. Bladder cancer risk factors - smoking positive no workplace exposure Prior Cystoscopy 07/20 , Positive - small lesion 10/18 Negative 01/17 slight red posterior, metaplasia over left UO, 07/21 Small lesion on UO, 01/18 Small UO leson - will fulgerate in OR due to location 07/22 NAD, 12/20 posterior wall small area of redness, 06/21 small red spot, 12/21 stable - 12/21 cystoscopy negative, 07/24 NAD, 01/21 NAD Prior Cytology 07/20 , Negative for malignancy 10/18 , Negative for malignancy 04/19 , Negative for malignancy 07/21 , Negative for malignancy, 07/23 NAD Prior Imaging 06/18 , CT scan with contrast, No evidence for metastases 02/17 , Ultrasound mild left hydro stable. Previous intravesical therapy none. Planned treatment surveillance protocol q6 m for 5 years [facility]LY [facility], [facility] Medical History Bladder cancer HTN (hypertension) Gross hematuria Malignant neoplasm of anterior wall of urinary bladder Tubular adenoma of colon Overweight Surgical History (Updated 02/10/25 @ 07:16 by Ivelisse Ledesma RN) History of cystoscopy Hx of hysterectomy, total Hx of colonoscopy Family History Mother Diabetes HTN (hypertension) High cholesterol Father Diabetes HTN (hypertension) High cholesterol Sister HTN (hypertension) High cholesterol Sister HTN (hypertension) High cholesterol Sister HTN (hypertension) High cholesterol Brother HTN (hypertension) High cholesterol Brother HTN (hypertension) High cholesterol Brother HTN (hypertension) High cholesterol Social History Household Members Other:: , 17 y/o daughter Housing: House Are you a primary health care / medical job titles to a significant other at home: No Do you presently have visiting nurse or other home services: No Alcohol intake: never Patient Tobacco Use Status: Former Tobacco user e-Cigarette/Vaping Use: Never Used Second Hand Smoke Exposure: No Substance Use Type: Marijuana Current occupational status: employed Current occupation: [employer] Current occupational exposures/hazards: No Cognitive needs: No Hearing needs: No Vision needs: No Review of Systems Const Denies chills and Denies fever(s) Card Reports no additional complaints and Denies syncope Resp Denies cough GI Denies abdominal pain and Denies heartburn Reports as per HPI and Denies change in libido Neuro Denies syncope Psych Denies change in libido Endo Denies change in libido Physical Exam Const General: cooperative, healthy appearing, comfortable and no acute distress Orientation/consciousness: patient oriented x3 HEENT Face and sinus: Yes normal facial exam Mouth: moist mucous membranes Neck Neck: Yes normal visual inspection, Yes full ROM and Yes trachea midline Chest Chest palpation & inspection: normal inspection of the chest Resp Effort & Inspection: normal respiratory effort, able to speak in complete sentences and no respiratory distress GI Inspection: Yes normal to inspection Back/Spine/Pelvis Cervical Spine: normal cervical lordosis Thoracic/Lumbar Spine: thoracic and lumbar spine normal to inspection Skin General skin exam: no rashes or lesions noted Neuro General: patient oriented x3, gait normal, tone normal and moves all extremities Extrem General: Yes normal to inspection and Yes capillary refill normal Assessment & Plan Assessment & Plan (1) Bladder cancer: Comment: Low-grade last TURBT 2019 Code(s): C67.9 - Malignant neoplasm of bladder, unspecified Category: Medical Qualifiers: Bladder location: unspecified site Qualified Code(s): C67.9 - Malignant neoplasm of bladder, unspecified Plan Four month follow-up check cysto office Patient Instructions: This note is constructed using voice recognition software. While every effort has been made to ensure accuracy pilot control operator helper errors may have been included. Imaging studies, laboratory and physical exam results were discussed and reviewed in detail. No major barriers to patient understanding were identified. An opportunity to ask questions regarding the treatment plan was provided. All questions were answered. The patient expressed understanding and agreement with the above treatment plan. The patient is aware they should contact our office by phone for worsening of their current condition or the appearance of new urologic symptoms. Compliance is encouraged with any medications and followup testing that is ordered. It is a privilege to participate in the urologic care of your patient. If you have any questions or concerns regarding treatment for the above conditions, or other urologic issues, please do not hesitate to contact me. The office teleph one contact is [phone]. Sincerely, Dr Alfie Bowden MD, [facility] - Urology Compassionate Specialist Care for the Genitourinary System Coding Level of Care Code Est Pt Level 3 (09598) Complex EM visit Add On G2211 Diagnoses Malignant neoplasm of urinary bladder, unspecified site C67.9 Bladder location: unspecified site
== END 2025-02-27 14:00 | disposition home or self-care (01) ==
LOC: HO.HUSH 13:19
PROVIDERS: PCP Nurse Practitioner Family; Visit Provider Urology
DX: C67.9 Malignant neoplasm of bladder, unspecified (principal)
CPT/HCPCS: 99213; G2211

== ENCOUNTER 2025-06-25 08:50 | Outpatient (AMB) | payer OTHER, SELFPAY ==
--- NOTE | 2025-06-25 08:58 | A.OFFVIS_ITS ---
Intake Visit Reasons: Cystoscopy(Bladder Ca)SET Intake Note: Reason for Visit: Cystoscopy (Bladder Cancer) Urology Meds: None Blood Thinners: None Labs: None Last Urine Cytology: 02/28/2025 Imaging: None Last PVR: None URO G-HD Cystoscope LOT [id number] EXP 12/10/2027 Winding Inspector Required: No Accompanied by: Self / Same As Patient Allergies No Known Allergies Allergy (Verified 06/25/25 09:18) HPI Comments Details: Federica is very pleasant female. She is a patient Dr. Morales. She is seen for following urologic conditions - bladder cancer Four-month follow-up If stable move to six-month Cytology - 11/23 NAD Bladder Cancer: low-grade, recurrent, intermediate risk initial diagnosis 2017, last TURBT 02/18, 02/24 chronically reactive area Bladder cancer was initially diagnosed during evaluation for gross hematuria 06/18. Bladder intervention(s) performed 07/20 , TURBT, with Mitomycin C, Ta noninvasive papillary carcinoma, Low Grade 02/18 TURBT , Ta noninvasive papillary carcinoma, Low Grade. - 02/24 TURBT predominantly inflammatory response Recurrence Risk per EORTC - intermediate risk. Bladder cancer risk factors - smoking positive no workplace exposure Prior Cystoscopy 07/20 , Positive - small lesion 10/18 Negative 01/17 slight red posterior, metaplasia over left UO, 07/21 Small lesion on UO, 01/18 Small UO leson - will fulgerate in OR due to location 07/22 NAD, 12/20 posterior wall small area of redness, 06/21 small red spot, 12/21 stable - 12/21 cystoscopy negative, 07/24 NAD, 01/21 NAD Prior Cytology 07/20 , Negative for malignancy 10/18 , Negative for malignancy 04/19 , Negative for malignancy 07/21 , Negative for malignancy, 07/23 NAD Prior Imaging 06/18 , CT scan with contrast, No evidence for metastases 02/17 , Ultrasound mild left hydro stable. Previous intravesical therapy none. Planned treatment surveillance protocol q6 m for 5 years [facility]LY [facility], [facility] Medical History Bladder cancer HTN (hypertension) Gross hematuria Malignant neoplasm of anterior wall of urinary bladder Tubular adenoma of colon Overweight Surgical History History of cystoscopy Hx of hysterectomy, total Hx of colonoscopy Family History Mother Diabetes HTN (hypertension) High cholesterol Father Diabetes HTN (hypertension) High cholesterol Sister HTN (hypertension) High cholesterol Sister HTN (hypertension) High cholesterol Sister HTN (hypertension) High cholesterol Brother HTN (hypertension) High cholesterol Brother HTN (hypertension) High cholesterol Brother HTN (hypertension) High cholesterol Social History Household Members Other:: , 17 y/o daughter Housing: House Are you a primary careers counsellor to a significant other at home: No Do you presently have visiting nurse or other home services: No Alcohol intake: never Patient Tobacco Use Status: Former Tobacco user e-Cigarette/Vaping Use: Never Used Second Hand Smoke Exposure: No Substance Use Type: Marijuana Current occupational status: employed Current occupation: [employer] Current occupational exposures/hazards: No Cognitive needs: No Hearing needs: No Vision needs: No Review of Systems Const Denies chills and Denies fever(s) Card Reports no additional complaints and Denies syncope Resp Denies cough GI Denies abdominal pain and Denies heartburn Reports as per HPI and Denies change in libido Neuro Denies syncope Psych Denies change in libido Endo Denies change in libido Physical Exam Const General: cooperative, healthy appearing, comfortable and no acute distress Orientation/consciousness: patient oriented x3 HEENT Face and sinus: Yes normal facial exam Mouth: moist mucous membranes Neck Neck: Yes normal visual inspection, Yes full ROM and Yes trachea midline Chest Chest palpation & inspection: normal inspection of the chest Resp Effort & Inspection: normal respiratory effort, able to speak in complete sentences and no respiratory distress GI Inspection: Yes normal to inspection Back/Spine/Pelvis Cervical Spine: normal cervical lordosis Thoracic/Lumbar Spine: thoracic and lumbar spine normal to inspection Skin General skin exam: no rashes or lesions noted Neuro General: patient oriented x3, gait normal, tone normal and moves all extremities Extrem General: Yes normal to inspection and Yes capillary refill normal Office Procedures Cystoscopy Consent Discussed risk and benefit or proposed procedure with the patient. Information consent for procedure given to the patient. Discussed technical aspects, risks, benefits and alternatives in full. Addressed all of the patient's questions and concerns regarding the procedure. The patient demonstrated knowledge and understanding. They wish to proceed with this procedure. Preparation The patient was prepped in the usual manner. A mid level practitioner was present and in the room. Genitalia was prepped with betadine solution in a sterile manner. Lidocaine Jelly 2% was placed into the urethra and 16Fr flexible Olympus cystoscope was inserted into the meatus after adequate lubrication. Procedure Consent confirmed Genitalia prepped and draped using topical antiseptic and lidocaine jelly Cystoscopy performed using a sterile disposable Urovue digital 16 Indonesian cystoscope Meatus normal Urethra normal Bladder examination with retroflexion of cystoscope Bladder Orifices normal shape and position Trigone known Bladder Capacity Normal Trabeculations Grade 0 Cellule Formation None Diverticulum Formation None Mucosal Erythema None Bladder Tumor None - healed scar [id number] DISPOSABLE SCOPE URO-G FLEXIBLE SCOPE Procedure code (CPT) selection complete Office Meds lidocaine HCl 2 % mucosal jelly in applicator Performing Provider: Alfie Bowden MD Performing Location: [facility] Administered by: Del Ny LPN on 06/25/25 09:13 Dose Route Admin Location Dispensed Lot Number Expiration Date ND Inbound Telemarketer 10 mL intra-urethral 10 mL nitrofurantoin monohydrate/macrocrystals 100 mg capsule Performing Provider: Alfie Bowden MD Performing Location: [facility] Administered by: Del Ny LPN on 06/25/25 09:13 Dose Route Admin Location Dispensed Lot Number Expiration Date ND Inbound Telemarketer 100 mg PO 1 cap Results AMB Urinalysis, Automated UA Leukoctes 0 Makenna/uL Last Edit by PASHA Adair on 06/25/25 09:19 UA Nitrite Negative Last Edit by PASHA Adair on 06/25/25 09:19 UA Urobilinogen 0.2 mg/dL Last Edit by PASHA Adair on 06/25/25 09:1 9 UA Protein 0 mg/dL Last Edit by PASHA Adair on 06/25/25 09:19 UA pH 6.0 Last Edit by PASHA Adair on 06/25/25 09:19 UA Blood 10 Sung/uL Last Edit by PASHA Adair on 06/25/25 09:19 UA Specific [place] 1.010 Last Edit by PASHA Adair on 06/25/25 09: 19 UA Ketone Negative Last Edit by PASHA Adair on 06/25/25 09:19 UA Bilirubin 0 mg/dL Last Edit by Eunice Hwang RMA on 06/25/25 09:19 UA Glucose 0 mg/dL Last Edit by PASHA Adair on 06/25/25 09:19 Results Reviewed Results Reviewed: Laboratory Last Values Urine pH (Auto) 6.0 06/25/25 09:13 Specific [place] (Auto) 1.010 06/25/25 09:13 Urine Protein (Auto) 0 mg/dL 06/25/25 09:13 Glucose (UA)(Auto) 0 mg/dL 06/25/25 09:13 Urine Ketones (Auto) Negative 06/25/25 09:13 Urine Blood (Auto) 10 Sung/uL 06/25/25 09:13 Urine Nitrite (Auto) Negative 06/25/25 09:13 Urine Bilirubin (Auto) 0 mg/dL 06/25/25 09:13 Urine Urobilinogen (Auto) 0.2 mg/dL 06/25/25 09:13 Leukocyte Esterase (Auto) 0 Makenna/uL 06/25/25 09:13 Assessment & Plan Assessment & Plan (1) Bladder cancer: Comment: Low-grade last TURBT 2019 Code(s): C67.9 - Malignant neoplasm of bladder, unspecified Category: Medical Qualifiers: Bladder location: unspecified site Qualified Code(s): C67.9 - Malignant neoplasm of bladder, unspecified Plan Six-month follow-up office cysto Orders: Orders Urine Cytology Today C67.9 - Malignant neoplasm of bladder, unspecified AMB Urinalysis Automated Today Z13.9 - Encounter for screening, unspecified AMB Cystoscopy Today C67.9 - Malignant neoplasm of bladder, unspecified Patient Instructions: This note is constructed using voice recognition software. While every effort has been made to ensure accuracy carboy filler errors may have been included. Imaging studies, laboratory and physical exam results were discussed and reviewed in detail. No major barriers to patient understanding were identified. An opportunity to ask questions regarding the treatment plan was provided. All questions were answered. The patient expressed understanding and agreement with the above treatment plan. The patient is aware they should contact our office by phone for worsening of their current condition or the appearance of new urologic symptoms. Compliance is encouraged with any medications and followup testing that is ordered. It is a privilege to participate in the urologic care of your patient. If you have any questions or concerns regarding treatment for the above conditions, or other urologic issues, please do not hesitate to contact me. The office telephone contact is [phone]. Sincerely, Dr Alfie Bowden MD, [facility] - Urology Compassionate Specialist Care for the Genitourinary System Coding Level of Care Code Est Pt Level 3 (42798) Diagnoses Malignant neoplasm of urinary bladder, unspecified site C67.9 Bladder location: unspecified site CPT Codes Cystoscopy - CPT: 55734-[id number] ([id number])
== END 2025-06-25 09:53 | disposition home or self-care (01) ==
LOC: HO.HUSH 08:51
PROVIDERS: PCP Nurse Practitioner Family; Visit Provider Urology
DX: Z13.9 Encounter for screening, unspecified (principal); C67.9 Malignant neoplasm of bladder, unspecified
CPT/HCPCS: 52000

== ENCOUNTER 2025-06-25 08:50 | Outpatient (REF) | payer OTHER, SELFPAY | END 2025-06-25 08:51 | disposition home or self-care (01) | LOC: HO.LAB 08:50 | PROVIDERS: PCP Nurse Practitioner Family; Visit Provider Urology | DX: C67.9 Malignant neoplasm of bladder, unspecified (principal); Z13.89 Encounter for screening for other disorder | CPT/HCPCS: 52000; 81003; 88112 ==